=== PATIENT | male | born 1990 | race African-American/Black ===

== ENCOUNTER 2019-05-01 14:14 | Emergency (ER) | payer MEDICAID ==
[~2019-05-01] VITALS: Ht 177.8 cm; Wt 73.0 kg
[2019-05-01 14:18] VITALS: BP 116/71
== END 2019-05-01 16:51 | disposition home or self-care (01) ==
LOC: ER 14:14
DX: S01.01XA Laceration without foreign body of scalp, initial encounter (principal); V43.52XA Car driver injured in collision with other type car in traffic accident, initial encounter; Y93.89 Activity, other specified; Y92.488 Other paved roadways as the place of occurrence of the external cause
CPT/HCPCS: 12002; 99283